=== PATIENT | female | born 2000 | race Caucasian/White ===

== ENCOUNTER 2020-07-18 11:22 | Outpatient (REF) | payer OTHER, SELFPAY ==
[2020-07-18 12:48] LABS: COVID-19 Test Positive (Negative)
== END 2020-07-18 11:23 | disposition home or self-care (01) ==
LOC: HO.LAB 11:22
PROVIDERS: Visit Provider Internal Medicine
DX: Z20.822 Contact with and (suspected) exposure to COVID-19 (principal)
CPT/HCPCS: 36415; 87635; C9803

== ENCOUNTER 2020-08-01 13:33 | Outpatient (REF) | payer OTHER, SELFPAY ==
[2020-08-01 14:03] LABS: IDNOW Serial# 55D5AD1C
[2020-08-01 14:04] LABS: COVID-19 Test Positive (Negative)
== END 2020-08-01 13:34 | disposition home or self-care (01) ==
LOC: HO.LAB 13:33
PROVIDERS: Visit Provider Internal Medicine
DX: Z20.822 Contact with and (suspected) exposure to COVID-19 (principal)
CPT/HCPCS: 36415; 87635; C9803

== ENCOUNTER 2020-08-15 15:28 | Outpatient (REF) | payer OTHER, SELFPAY | END 2020-08-15 15:29 | disposition home or self-care (01) | LOC: HO.LAB 15:28 | PROVIDERS: Visit Provider Internal Medicine | DX: Z20.822 Contact with and (suspected) exposure to COVID-19 (principal) | CPT/HCPCS: C9803; U0003; U0005 ==

== ENCOUNTER 2022-12-22 03:43 | Emergency (ER) | payer OTHER, SELFPAY ==
--- NOTE | ~2022-12-22 | XR_ITS ---
EXAMINATION: XR HAND, RIGHT CLINICAL INFORMATION: Laceration. COMPARISON: None available. TECHNIQUE: PA, lateral, and oblique views of the right hand. FINDINGS: The bone mineralization is normal. The joint spaces are maintained. There is no fracture. There is a 2.1 cm radiopaque structure along the medial hand. XR/XR hand RT min 3V IMPRESSION: No acute osseous abnormality. 2.1 cm foreign body medial hand.
[2022-12-22 03:54] VITALS: BP 103/57; BP 130/90; PULSE 98; RESP 16; TEMP 37.2; O2SAT 98; O2SAT 99; BMI 54.2
[2022-12-22 04:01] VITALS: BP 103/57; PULSE 94; RESP 16; TEMP 37.2; O2SAT 98
[2022-12-22] MEDS: Lidocaine HCl 1 % MPF 5 ML VIAL INFILTRATI (05:15)
[2022-12-22] MEDS: Amoxicillin/Potassium Clav 875 MG TABLET PO (05:21)
[2022-12-22 05:34] VITALS: BP 108/64; PULSE 87; RESP 16; O2SAT 99
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
[2022-12-22] MEDS: Diphth,Pertus(ACell),Tet Adult 0.5 ML SYRINGE IM (05:50)
== END 2022-12-22 05:54 | disposition home or self-care (01) ==
PROVIDERS: Emergency Provider Internal Medicine
DX: S61.421A Laceration with foreign body of right hand, initial encounter (principal); X58.XXXA Exposure to other specified factors, initial encounter; Y93.89 Activity, other specified; Y92.009 Unspecified place in unspecified non-institutional (private) residence as the place of occurrence of the external cause; Y99.9 Unspecified external cause status; F17.200 Nicotine dependence, unspecified, uncomplicated
CPT/HCPCS: 73130; 90471; 90715; 99284

== ENCOUNTER 2023-03-10 14:29 | Emergency (ER) | payer OTHER, SELFPAY ==
[2023-03-10 14:35] VITALS: BP 136/72; PULSE 86; O2SAT 100
[2023-03-10 15:46] VITALS: BP 113/76; PULSE 86; RESP 18; TEMP 36; O2SAT 98; BMI 55.6
--- NOTE | 2023-03-10 15:47 | ED.GENADULT ---
HPI - General Adult General Chief complaint: Dyspnea Stated complaint: STUFFY NOSE PER EMS Time Seen by Provider: 03/10/23 23:52 Source: patient Mode of arrival: ambulatory Limitations: no limitations History of Present Illness HPI narrative: Patient comes to the emergency room complaining flu-like symptoms. Patient complaining of cough, sneezing, subjective fevers, nausea. Patient states that she does not know she is . Patient is 2 days late for her menstrual period. Related Data Previous Rx's Medication Instructions Recorded amoxicillin 875 mg-potassium 1 tab PO BID #20 tabs 12/22/22 clavulanate 125 mg tablet ibuprofen 600 mg tablet 600 mg PO Q6H PRN fever or pain 12/22/22 #30 tabs ibuprofen 600 mg tablet 600 mg PO TID PRN fever or pain 03/11/23 #14 tabs ondansetron HCl 4 mg tablet 4 mg PO Q8H PRN nausea and 03/11/23 vomiting #10 tabs Allergies Allergy/AdvReac Type Severity Reaction Status Date / Time No Known Allergies Allergy Verified 03/10/23 15:46 [No Known Allergies*] Review of Systems Review of Systems: Constitutional : No Weight loss, complaining of subjective Fever, No Chills, No Night Sweats, No Fatigue, No Malaise ENT/Mouth : No Hearing loss, No Ear Pain, No Nasal Congestion, No Sinus Pain, No Hoarseness, No sore throat, complaining of intermittent runny nose,, No Swallowing Difficulty Eyes: No Eye Pain, No Swelling, No Redness, No Foreign Body, No Discharge, No Vision Changes Cardiovascular : No Chest Pain, No SOB, No Dyspnea on Exertion, No Orthopnea, No Edema, No Palpitations Respiratory : Complaining of cough No Sputum, No Wheezing, No Smoke Exposure, No Dyspnea Gastrointestinal : No Nausea, No Vomiting, No Diarrhea, No Constipation, No abdominal Pain, No Hematochezia, No Melena Genitourinary : no irregular bleeding, No Dysuria, No Urinary Frequency, No Hematuria, No Urinary Incontinence, No Urgency, No Flank Pain, No Urinary Flow Changes, No Hesitancy Musculoskeletal : No joint pain, No Myalgias, No Joint Swelling Skin : No Skin Lesions, No rash Neuro : No Weakness, No Numbness, No Paresthesias, No Loss of Consciousness, No Dizziness, No Headache Psych : No Anxiety/Panic, No Depression, No SI/HI/AH/VH, No Social Issues, Heme/Lymph: No Bruising, No Bleeding,No Lymphadenopathy Endocrine : No Polyuria, No Polydipsia, No Temperature Intolerance [facility] Social History Social History Alcohol intake: current Alcohol intake frequency: holidays/special occasions only Smoked in Last 30 Days: Yes Use of substances other than those prescribed or required for medical reasons: No Advance Directives: No Advance Directives Information Provided: No Physical Exam ED Vital Signs: Vital Signs - 24 hr 03/10/23 15:46 03/10/23 22:28 03/11/23 00:02 Temperature 96.8 F 96.7 F L 98.4 F Pulse Rate 86 80 73 Respiratory Rate 18 18 18 Blood Pressure 113/76 116/63 117/77 Pulse Oximetry 98 100 98 Oxygen Delivery Method Room Air Room Air Room Air BMI result Body Mass Index 55.6 Const Other: Appearance: Alert. Oriented X3. No acute distress. Well-appearing Eyes: Pupils equal, round and reactive to light. ENT: Pharynx normal. Neck: Normal inspection. Neck supple. No lymph nodes noted. No crepitus CVS: Normal heart rate and rhythm. Pulses normal. Normal S1 and S2 Respiratory: No respiratory distress. Breath sounds normal. No Wheezing. No rales Abdomen: Soft and nontender. No rigidity. No distention. Skin: Skin warm and dry. Normal skin color. Normal skin turgor. Extremities: No lower extremity edema. No Lacerations. No Rash Neuro: Oriented X 3. No motor deficit. No sensory deficit. Moving all extremities. No slurred speech. CN 2 through 12 grossly intact Psych: calm, cooperative, normal affect Course Course Course Narrative: This is an RME: Additional HPI, ROS, PE not included below will be deferred to primary provider. This is a [id number]-female presenting to the emergency department with complaints of shortness of breath since today. Also reports that she was was to get her menses 2 days ago however has not had it. Endorsing nausea, no vomiting. No abdominal cramping, vaginal bleeding. Plan: Labs, UA Medical Decision Making Medical Decision Making MDM Narrative: -my interpretation of labs, negative for influenza, RSV, COVID. -patient's physical exam and vitals are completely normal. -patient likely has a viral syndrome. Differential Diagnosis Differential Diagnoses: The differential diagnosis associated with the presentation includes (Viral syndrome, COVID, influenza, RSV) Lab Data 03/10/23 16:28 03/10/23 16:28 Labs: Lab Results 03/10/23 Range/Units 16:28 WBC 10.7 (4.8-10.8) X10*3/uL RBC 4.21 (4.20-5.50) X10*6/uL Hgb 11.9 L (12.0-16.0) g/dl Hct 37.3 (37.0-47.0) % MCV 88.6 (80.0-98.0) fL MCH 28.3 (27.0-33.0) pg MCHC 31.9 (31.0-35.0) g/dl RDW 13.4 (11.0-16.0) % Plt Count 288 (160-400) X10*3/uL MPV 11.3 (9.4-12.3) fL Immature Gran % (Auto) 0.5 H (0.0-0.4) % Neut % (Auto) 57.2 (45-73) % Lymph % (Auto) 33.5 (20-40) % [place] % (Auto) 6.1 (2-11) % Eos % (Auto) 2.4 (0-4) % Baso % (Auto) 0.3 (0-2) % Lymph # (Auto) 3.6 (1.2-4.9) X10*3/uL [place] # (Auto) 0.7 (0.1-1.2) X10*3/uL Eos # (Auto) 0.3 (0.0-0.4) X10*3/uL Baso # (Auto) 0.0 (0.0-0.2) X10*3/uL Abs Immat Gran (auto) 0.05 H (0.00-0.03) X10*3/uL Absolute Neuts (auto) 6.1 (2.0-8.3) x10*3/uL Absolute Nucleated RBC 0.000 (0.0-0.012) X10*3/uL Nucleated RBC % (auto) 0.0 (0.0-0.2) /100WBC Sodium 139 (135-145) mmol/L Potassium 4.3 (3.3-5.1) mmol/L Chloride 106 (96-108) mmol/L Carbon Dioxide 26 (22-29) mmol/L Anion Gap 11 L (12-20) BUN 13 (9-16) mg/dL Creatinine 0.79 (0.5-1.4) mg/dL Estim Creat Clear Calc 147.6 Estimated GFR > 60 Random Glucose 92 (60-115) mg/dL Calcium 9.3 (8.4-10.2) mg/dL Total Bilirubin 0.2 (0.0-1.0) mg/dL Direct Bilirubin < 0.2 (0.0-0.5) mg/dL AST 16 (5-31) U/L ALT 16 (0-31) U/L Alkaline Phosphatase 93 (39-117) U/L Total Protein 7.4 (6.5-8.0) g/dL Albumin 3.8 (3.5-5.0) g/dL Beta HCG, Quant < 2 mIU/mL Influenza Type A (PCR) NEGATIVE (Negative) Influenza Type B (PCR) NEGATIVE (Negative) RSV RNA Qual (PCR) NEGATIVE (Negative) SARS-CoV-2 RNA (RT-PCR) NEGATIVE (Negative) Discharge Plan Discharge Clinical Impression: Viral illness Patient Disposition: Home, Self-Care Instructions: Viral Syndrome (ED) Additional Instructions: Please follow-up with your primary care physician tomorrow. If you have any worsening or new symptoms, please return to the emergency room or call 911 Prescriptions: New ibuprofen 600 mg tablet 600 mg PO TID PRN (Reason: fever or pain) Qty: 14 0RF ondansetron HCl 4 mg tablet 4 mg PO Q8H PRN (Reason: nausea and vomiting) Qty: 10 0RF No Action ibuprofen 600 mg tablet 600 mg PO Q6H PRN (Reason: fever or pain) Qty: 30 0RF amoxicillin-pot clavulanate 875-125 mg tablet 1 tab PO BID Qty: 20 0RF
[2023-03-10 16:40] LABS: MANUAL DIFF FLAG NO
[2023-03-10 16:42] LABS: Basophils Percent Auto 0.3 % (0-2); Eosinophils Absolute Auto 0.3 X10*3/uL (0.0-0.4); Eosinophils Percent Auto 2.4 % (0-4); Hematocrit 37.3 % (37.0-47.0); Hemoglobin 11.9 g/dl (12.0-16.0); Imm Gran Abs Auto 0.05 X10*3/uL (0.00-0.03); Imm Gran Pct Auto 0.5 % (0.0-0.4); Lymphocytes Absolute Auto 3.6 X10*3/uL (1.2-4.9); Lymphocytes Percent Auto 33.5 % (20-40); Mean Corpuscular HGB Conc 31.9 g/dl (31.0-35.0); Mean Corpuscular Hemoglobin 28.3 pg (27.0-33.0); Mean Corpuscular Volume 88.6 fL (80.0-98.0); Mean Platelet Volume 11.3 fL (9.4-12.3); Monocytes Absolute Auto 0.7 X10*3/uL (0.1-1.2); Monocytes Percent Auto 6.1 % (2-11); Neutrophils Absolute Auto 6.1 x10*3/uL (2.0-8.3); Neutrophils Percent Auto 57.2 % (45-73); Platelet Count 288 X10*3/uL (160-400); Red Blood Count 4.21 X10*6/uL (4.20-5.50); Red Cell Distribution Width 13.4 % (11.0-16.0); White Blood Count 10.7 X10*3/uL (4.8-10.8)
[2023-03-10 17:00] LABS: Alanine Aminotransferase 16 U/L (0-31); Albumin Level 3.8 g/dL (3.5-5.0); Alkaline Phosphatase 93 U/L (39-117); Anion Gap 11 (12-20); Aspartate Amino Transferase 16 U/L (5-31); Bilirubin Direct < 0.2 mg/dL (0.0-0.5); Bilirubin Total 0.2 mg/dL (0.0-1.0); Blood Urea Nitrogen 13 mg/dL (9-16); Calcium 9.3 mg/dL (8.4-10.2); Carbon Dioxide 26 mmol/L (22-29); Chloride 106 mmol/L (96-108); Creatinine Clr Calc Pharmacy 147.6; Estimated Glomerular Filt Rate > 60; Glucose Random 92 mg/dL (60-115); Potassium 4.3 mmol/L (3.3-5.1); Sodium 139 mmol/L (135-145); Total Protein 7.4 g/dL (6.5-8.0)
[2023-03-10 17:27] LABS: Influenza A PCR NEGATIVE (Negative); Influenza B PCR NEGATIVE (Negative); Resp Syncy Virus RNA Qual PCR NEGATIVE (Negative); SARS COV2 PCR INHOUSE NEGATIVE (Negative)
[2023-03-10 22:28] VITALS: BP 116/63; PULSE 80; RESP 18; TEMP 35.9; O2SAT 100
[2023-03-11 00:02] VITALS: BP 117/77; PULSE 73; RESP 18; TEMP 36.9; O2SAT 98
[2023-03-11 00:15] LABS: HCG Quantitative < 2 mIU/mL
--- NOTE | 2023-03-11 00:25 | PC.NURSE ---
pt resting comfortably with no signs of SOB, pt eating fast food, talking on the phone in full sentences. breathing even and non labored. pt unable to provide urine at this time, water given
--- NOTE | 2023-03-11 01:09 | PC.NURSE ---
pt standing outside her room, waiting for d/c paperwork. pt refusing to go back or take arm out for vitals
== END 2023-03-11 01:13 | disposition home or self-care (01) ==
PROVIDERS: Physician Assistant Medical; Emergency Provider Emergency Medicine
DX: B34.9 Viral infection, unspecified (principal); R06.02 Shortness of breath; R05.9 Cough, unspecified; R50.9 Fever, unspecified; R11.2 Nausea with vomiting, unspecified; Z20.822 Contact with and (suspected) exposure to COVID-19; Z20.828 Contact with and (suspected) exposure to other viral communicable diseases; Z79.899 Other long term (current) drug therapy
CPT/HCPCS: 0241U; 36415; 80048; 80076; 84702; 85025; 99283; 99284

== ENCOUNTER 2023-04-04 18:38 | Emergency (ER) | payer OTHER, SELFPAY ==
--- NOTE | ~2023-04-04 | XR_ITS ---
EXAMINATION: XR CHEST CLINICAL INFORMATION: Shortness of breath COMPARISON: None available. TECHNIQUE: 2 views of the chest were obtained. FINDINGS: No significant abnormality is noted involving the heart, lungs, mediastinum, bony thorax or soft tissues. XR/XR chest 2V IMPRESSION: Unremarkable examination.
[2023-04-04 19:17] VITALS: BP 155/33; PULSE 87; RESP 18; TEMP 36.9; O2SAT 98; BMI 55.0
--- NOTE | 2023-04-04 19:21 | ED_ITS ---
HPI - General Adult General Chief complaint: Upper Respiratory Symptoms Stated complaint: sob Time Seen by Provider: 04/04/23 20:12 Source: patient Mode of arrival: ambulatory Limitations: no limitations History of Present Illness HPI narrative: 23-year-old female came in for evaluation of shortness of breath for about a month. Patient is otherwise healthy except for morbid obesity came in for intermittent feeling of dyspnea and difficulty breathing over the past month, no recent travel, no prolonged at immobilization, patient has been complaining of left knee pain for more than a month, no known trauma or injury to the left knee. Patient smokes cigarette on occasions only, no history of asthma, no fever or chills. Related Data Previous Rx's Medication Instructions Recorded amoxicillin 875 mg-potassium 1 tab PO BID #20 tabs 12/22/22 clavulanate 125 mg tablet ibuprofen 600 mg tablet 600 mg PO Q6H PRN fever or pain 12/22/22 #30 tabs ibuprofen 600 mg tablet 600 mg PO TID PRN fever or pain 03/11/23 #14 tabs ondansetron HCl 4 mg tablet 4 mg PO Q8H PRN nausea and 03/11/23 vomiting #10 tabs Allergies Allergy/AdvReac Type Severity Reaction Status Date / Time No Known Allergies Allergy Verified 03/10/23 15:46 [No Known Allergies*] Review of Systems 2 Review of Systems: All other systems are reviewed and are negative Constitutional: Reports as per HPI and Reports no additional constitutional complaints Eyes: Reports as per HPI and Reports no additional eye complaints Reports system reviewed and no additional complaints, except as documented Cardiovascular: Reports as per HPI and Reports no additional cardiovascular complaints Respiratory: Reports as per HPI and Reports no additional respiratory complaints Gastrointestinal: Reports as per HPI and Reports no additional gastrointestinal complaints Genitourinary: Reports no additional female genitourinary complaints Musculoskeletal: Reports no additional musculoskeletal complaints Skin/Breast: Reports system reviewed and no additional complaints, except as docu Psychiatric: Reports no additional psychiatric complaints Endocrine: Reports no additional endocrine complaints Hematologic/Lymphatic: Reports no additional hematologic/lymphatic complaints Allergic/Immunologic: Reports no additional allergic/immunologic complaints Reports system reviewed and no additional complaints, except as documented and Reports Abnormal speech present [facility] Social History Social History Alcohol intake: current Alcohol intake frequency: holidays/special occasions only Advance Directives: No Advance Directives Information Provided: No Physical Exam ED Vital Signs: Vital Signs - 24 hr 04/04/23 19:17 04/04/23 20:36 Temperature 98.4 F 98.0 F Pulse Rate 87 90 Respiratory Rate 18 14 Blood Pressure 155/33 H 112/61 Pulse Oximetry 98 100 Oxygen Delivery Method Room Air Room Air BMI result Body Mass Index 55.0 Vital signs have been reviewed and appear to be correct. Blood pressure elevated. Heart rate normal. Respiratory rate normal. Temperature normal. Oxygen saturation normal. Appearance: Alert. Oriented X3. No acute distress. Head: Normal external exam. Normocephalic. Atraumatic. No Zayas signs noted. No raccoon eyes noted Eyes: PERRLA. EOMI. Conjunctiva and sclera normal. Eyelids normal. ENT: TM's Normal. Pharynx normal. Uvula midline. Moist mucous membranes. No trismus noted. No drooling noted. No muffled voice noted. Neck: Normal inspection. Neck supple. FROM. No adenopathy. Thyroid Normal. No meningeal signs. No neck mass noted. CVS: Normal heart rate and rhythm. Heart sound normal. No murmurs noted. Pulses normal throughout. Respiratory: No respiratory distress. Painless inspiration. Breath sounds normal. No wheezes/rales/rhonchi noted. Chest nontender. No accessory muscle usage noted or decreased air movement noted. Abdomen: Soft and nontender. Bowel sounds normal in all 4 quadrants. No distention noted. No organomegaly noted. No visible injury noted. Back: No CVA tenderness. Full range of motion noted. Skin: Skin warm and dry. Normal skin color. Normal skin turgor. No rashes/lesions/lacerations noted. Extremities: No lower extremity edema. Extremities exhibit normal range of motion. Extremities nontender. Neuro: Oriented X 3. Cranial nerve exam: II-XII are grossly intact No motor deficit. No sensory deficit. Reflexes normal. Course Course Course Narrative: This is an RME: Additional HPI, ROS, PE not included below will be deferred to primary provider. Patient is a 23-year-old female presents emergency department for evaluation of shortness breath and left lower extremity pain. She reports she was seen in the emergency department 03/10/2023 for shortness of breath at that time. Reports no improvement in her symptoms since then if anything she feels that they are increasing in frequency and intensity. Shortness of breath is described be intermittent in nature but usually is worse at night. She also states she is experiencing pain to the anterior left leg just beneath knee, without reported injury, redness, warmth. Denies any personal history of DVT/PE/malignancy, or OCP usage. Plan: Labs, CXR, viral testing Reevaluation(s) Reevaluation #1: A month of difficulty breathing with unremarkable workup today, patient's symptoms is more than likely related to body habitus and morbid obesity. Patient was instructed to work with her PCP to lose weight. Time: 20:31 Medical Decision Making Differential Diagnosis Differential Diagnoses: The differential diagnosis associated with the presentation includes (Pneumonia, pneumothorax, viral bronchitis, pulmonary embolism, electrolyte abnormality, ACS, severe anemia.) Admission/Observation Consideration of admission/observation: Escalation of care including admission/observation considered Lab Data MDM Lab Attestation statement: I reviewed the patient's lab results. 04/04/23 19:37 04/04/23 19:37 Labs: Lab Results 04/04/23 Range/Units 19:37 WBC 10.4 (4.8-10.8) X10*3/uL RBC 4.27 (4.20-5.50) X10*6/uL Hgb 12.0 (12.0-16.0) g/dl Hct 36.8 L (37.0-47.0) % MCV 86.2 (80.0-98.0) fL MCH 28.1 (27.0-33.0) pg MCHC 32.6 (31.0-35.0) g/dl RDW 13.2 (11.0-16.0) % Plt Count 342 (160-400) X10*3/uL MPV 10.9 (9.4-12.3) fL Immature Gran % (Auto) 0.3 (0.0-0.4) % Neut % (Auto) 49.9 (45-73) % Lymph % (Auto) 37.6 (20-40) % [place] % (Auto) 9.1 (2-11) % Eos % (Auto) 2.7 (0-4) % Baso % (Auto) 0.4 (0-2) % Lymph # (Auto) 3.9 (1.2-4.9) X10*3/uL [place] # (Auto) 1.0 (0.1-1.2) X10*3/uL Eos # (Auto) 0.3 (0.0-0.4) X10*3/uL Baso # (Auto) 0.0 (0.0-0.2) X10*3/uL Abs Immat Gran (auto) 0.03 (0.00-0.03) X10*3/uL Absolute Neuts (auto) 5.2 (2.0-8.3) x10*3/uL Absolute Nucleated RBC 0.000 (0.0-0.012) X10*3/uL Nucleated RBC % (auto) 0.0 (0.0-0.2) /100WBC D-Dimer High Sensitivty < 150 NG/ML Sodium 141 (135-145) mmol/L Potassium 4.0 (3.3-5.1) mmol/L Chloride 111 H (96-108) mmol/L Carbon Dioxide 22 (22-29) mmol/L Anion Gap 12 (12-20) BUN 16 (9-16) mg/dL Creatinine 0.81 (0.5-1.4) mg/dL Estim Creat Clear Calc 141.9 Estimated GFR > 60 Random Glucose 82 (60-115) mg/dL Calcium 8.9 (8.4-10.2) mg/dL Total Bilirubin 0.2 (0.0-1.0) mg/dL AST 15 (5-31) U/L ALT 15 (0-31) U/L Alkaline Phosphatase 110 (39-117) U/L Total Protein 7.4 (6.5-8.0) g/dL Albumin 3.7 (3.5-5.0) g/dL COVID-19 (JOSE) Negative (Negative) COVID-19 Clin Com See Note Influenza Type A (NELI) Negative (Negative) Influenza Type B (NELI) Negative (Negative) Influenza A & B Note See Note Independent Interpretation I performed an independent interpretation of an: EKG (Normal sinus rhythm at 76 beats per minutes, normal axis deviation, normal intervals, no ST-T changes.) and Plain X-Ray (Chest: Unremarkable examination.) Radiology Impression Discussion of test interpretation with radiology: I have reviewed the radiologist's reading. Chronic Conditions Patient?s care impacted by: Other (Morbid obesity) Discharge Plan Discharge Clinical Impression: Acute dyspnea, Morbid obesity Patient Disposition: Home, Self-Care Instructions: Weight Management (ED) Prescriptions: No Action ibuprofen 600 mg tablet 600 mg PO Q6H PRN (Reason: fever or pain) Qty: 30 0RF amoxicillin-pot clavulanate 875-125 mg tablet 1 tab PO BID Qty: 20 0RF ibuprofen 600 mg tablet 600 mg PO TID PRN (Reason: fever or pain) Qty: 14 0RF ondansetron HCl 4 mg tablet 4 mg PO Q8H PRN (Reason: nausea and vomiting) Qty: 10 0RF Referrals: Physician,Unknown J [Primary Care Provider] -
[2023-04-04 19:42] LABS: MANUAL DIFF FLAG NO
--- NOTE | 2023-04-04 19:42 | MHC.EDTECH ---
Patient brought into triage area, labs,Covid,and Flu obtained and sent to lab. Patient brought back to waiting room
[2023-04-04 19:45] LABS: Basophils Percent Auto 0.4 % (0-2); Eosinophils Absolute Auto 0.3 X10*3/uL (0.0-0.4); Eosinophils Percent Auto 2.7 % (0-4); Hematocrit 36.8 % (37.0-47.0); Imm Gran Abs Auto 0.03 X10*3/uL (0.00-0.03); Imm Gran Pct Auto 0.3 % (0.0-0.4); Lymphocytes Absolute Auto 3.9 X10*3/uL (1.2-4.9); Lymphocytes Percent Auto 37.6 % (20-40); Mean Corpuscular HGB Conc 32.6 g/dl (31.0-35.0); Mean Corpuscular Hemoglobin 28.1 pg (27.0-33.0); Mean Corpuscular Volume 86.2 fL (80.0-98.0); Mean Platelet Volume 10.9 fL (9.4-12.3); Monocytes Percent Auto 9.1 % (2-11); Neutrophils Absolute Auto 5.2 x10*3/uL (2.0-8.3); Neutrophils Percent Auto 49.9 % (45-73); Platelet Count 342 X10*3/uL (160-400); Red Blood Count 4.27 X10*6/uL (4.20-5.50); Red Cell Distribution Width 13.2 % (11.0-16.0); White Blood Count 10.4 X10*3/uL (4.8-10.8)
[2023-04-04 19:55] LABS: D Dimer High Sensitivity < 150 NG/ML
[2023-04-04 19:58] LABS: Alanine Aminotransferase 15 U/L (0-31); Albumin Level 3.7 g/dL (3.5-5.0); Alkaline Phosphatase 110 U/L (39-117); Anion Gap 12 (12-20); Aspartate Amino Transferase 15 U/L (5-31); Bilirubin Total 0.2 mg/dL (0.0-1.0); Blood Urea Nitrogen 16 mg/dL (9-16); Calcium 8.9 mg/dL (8.4-10.2); Carbon Dioxide 22 mmol/L (22-29); Chloride 111 mmol/L (96-108); Creatinine Clr Calc Pharmacy 141.9; Estimated Glomerular Filt Rate > 60; Glucose Random 82 mg/dL (60-115); Sodium 141 mmol/L (135-145); Total Protein 7.4 g/dL (6.5-8.0)
[2023-04-04 20:04] LABS: COVID-19 Test Negative (Negative); IDNOW Serial# 08D9AD1C; IDNOW Serial# BCCEAD1C; Influenza A Negative (Negative)
[2023-04-04 20:05] LABS: Influenza B2 Negative (Negative)
--- NOTE | 2023-04-04 20:23 | ECG_ITS ---
Test Reason : SHORTNESS OF BREATH Blood Pressure : / mmHG Vent. Rate : 076 BPM Atrial Rate : 076 BPM P-R Int : 152 ms QRS Dur : 086 ms QT Int : 386 ms P-R-T Axes : 041 016 029 degrees QTc Int : 434 ms Normal sinus rhythm Normal ECG No previous ECGs available Referred By: Osmany Ocasio Electronically Signed By:CAMELIA GREEN MD
[2023-04-04 20:36] VITALS: BP 112/61; PULSE 90; RESP 14; TEMP 36.7; O2SAT 100
--- NOTE | 2023-04-04 21:41 | PC.NURSE ---
pt calm and cooperative. pt denies pain at discharge. pt ambulatory. pt provided with discharge packet at discharge pt verbalized understanding of discharge plan
== END 2023-04-04 21:42 | disposition home or self-care (01) ==
PROVIDERS: Nurse Practitioner Family; Emergency Provider Emergency Medicine
DX: R06.00 Dyspnea, unspecified (principal); E66.01 Morbid (severe) obesity due to excess calories; Z68.43 Body mass index [BMI] 50.0-59.9, adult; M25.562 Pain in left knee; Z11.52 Encounter for screening for COVID-19
CPT/HCPCS: 71046; 80053; 85025; 85379; 87502; 87635; 93005; 99283; 99284

== ENCOUNTER → 2023-04-04 20:23 | Outpatient (BNV) | payer OTHER, SELFPAY | PROVIDERS: Emergency Provider Emergency Medicine; Visit Provider Internal Medicine Cardiovascular Disease | DX: R06.02 Shortness of breath (principal) | CPT/HCPCS: 93010 ==